=== PATIENT | male | born 1955 | race Caucasian/White ===

== ENCOUNTER 2017-10-30 08:06 | Day surgery (SDC) | payer BC ==
[~2017-10-30] VITALS: Ht 172.7 cm; Wt 100.1 kg
[~2017-10-30 08:06] MED LIST: BENAML20/5; CETI5; LEVSOD25; META800 PO; METO100ER; NAPR550 PO; OXYACE5T PO; RXNAPNA550 PO
[2017-10-30] MEDS ORDERED: METF500 (08:40)
[2017-10-30] MEDS ORDERED: FARXIGA10 MG (08:40)
[2017-10-30] MEDS ORDERED: ATOR20 (08:42)
[2017-10-30] MEDS ORDERED: ASPI81CH (08:43)
== END 2017-10-30 10:35 | disposition home or self-care (01) ==
LOC: ORSCSDS 08:06
PROVIDERS: Internal Medicine Gastroenterology
PROC: 0DBL8ZX Excision of Transverse Colon, Via Natural or Artificial Opening Endoscopic, Diagnostic (ICD-10-PCS; principal; 2017-10-30 09:30)
DX: Z12.11 Encounter for screening for malignant neoplasm of colon (principal); D12.3 Benign neoplasm of transverse colon; K57.30 Diverticulosis of large intestine without perforation or abscess without bleeding; K64.8 Other hemorrhoids; E11.9 Type 2 diabetes mellitus without complications; I10 Essential (primary) hypertension; E78.00 Pure hypercholesterolemia, unspecified; Z79.82 Long term (current) use of aspirin; Z79.84 Long term (current) use of oral hypoglycemic drugs; Z79.899 Other long term (current) drug therapy
CPT/HCPCS: 82947; 88305; J7120

== ENCOUNTER 2020-04-13 10:28 | Day surgery (SDC) | payer BC ==
[~2020-04-13] VITALS: Ht 170.2 cm; Wt 100.0 kg
[~2020-04-13 10:28] MED LIST changes: +ASPI81CH; +ATOR20 PO; +Amaryl2 MG PO; -BENAML20/5; +BENAZEPRIL HCL40 MG PO; +FARXIGA10 MG PO; +LOTREL 10-40 M1 EACH PO; +METF500 PO; -METO100ER; +METO100ER PO
[2020-04-13] MEDS ORDERED: TOPROL XL25 MG PO (14:08)
--- NOTE | 2020-04-13 16:34 | NUR ---
DISCHARGE PT REMAINED A&OX3 AND DENIED ANY PAIN DURING RECOVERY. RIGHT RADIAL SITE-TR BAND REMOVED-CLOTH DOT AND WHITE BOARD [id number] HEMATOMA NOTED. IV DC'D WITH CANULA IN TACT. PT ABLE TO DRESS SELF WITH LITTLE ASSISTANCE FROM SPOUSE. PT AMBULATED TO RESTROOM WITH STEADY GAIT. DISCHARGE PAPERWORK GONE OVER WITH PT AND SPOUSE. PT AND SPOUSE VERBALLY STATED THE UNDERSTANDING OF THE DISCHARGE PAPERWORK AND DENIED ANY QUESTIONS AT THIS TIME. PT WHEELED OUT WITH BELONGINGS BY THIS NURSE.
== END 2020-04-13 15:45 | disposition home or self-care (01) ==
LOC: MHTC 10:28
PROC: B201YZZ Plain Radiography of Multiple Coronary Arteries using Other Contrast (ICD-10-PCS; principal; 2020-04-13)
PROC: 4A023N7 Measurement of Cardiac Sampling and Pressure, Left Heart, Percutaneous Approach (ICD-10-PCS; principal; 2020-04-13)
DX: I25.10 Atherosclerotic heart disease of native coronary artery without angina pectoris (principal); I42.0 Dilated cardiomyopathy; I11.9 Hypertensive heart disease without heart failure; E11.9 Type 2 diabetes mellitus without complications; E66.9 Obesity, unspecified; Z79.82 Long term (current) use of aspirin; Z79.84 Long term (current) use of oral hypoglycemic drugs; Z79.899 Other long term (current) drug therapy; Z88.8 Allergy status to other drugs, medicaments and biological substances; Z68.34 Body mass index [BMI] 34.0-34.9, adult
CPT/HCPCS: 93460; 99152; 99153; C1769; C1894; J1644; J2250; J3010; J7030; Q9967